=== PATIENT | female | born 1960 | race Two or more races ===

== ENCOUNTER → 2016-11-15 | Outpatient (CLI) | payer OTHER, SELFPAY ==
[~2016-11-15] MED LIST: ALEVE220 MG PO; BISOPROLOL-HCT1 EAC2 PO; FLINTSTONES WIT18 MG PO; LEVOTHROID (S100 MCG PO; NORCO 5-325 TA1 EACH PO; PERCOCET 5-3251 EACH PO; VALIUM5 MG PO
== END | disposition disaster alternative care site (69) ==
LOC: GRAD 17:04
DX: M25.561 Pain in right knee (principal); S80.11XA Contusion of right lower leg, initial encounter; S83.241A Other tear of medial meniscus, current injury, right knee, initial encounter; S83.281A Other tear of lateral meniscus, current injury, right knee, initial encounter; M25.461 Effusion, right knee; M71.21 Synovial cyst of popliteal space [Baker], right knee; X58.XXXA Exposure to other specified factors, initial encounter

== ENCOUNTER → 2016-12-02 | Outpatient (CLI) | payer OTHER, SELFPAY ==
--- NOTE | ~2016-12-02 | ENPV ---
Vascular Lower Extremities DVT Study Procedure Demographics Patient Name ROSA AMOS Date of Study 12/02/2016 Patient Number [id number] Gender Female Date of 1960 Age 56 Visit Number [id number] Height Accession Number [id number] Weight Room Number BSA BMI Referring Linden Campbell MD Physician Daniel Sanderson Physician MEGHANA Physician Ordering Physician Daniel Sanderson [employer] PA Internal Control Specialist Aroldo Etienne T, [facility] [place] Conclusions Summary No evidence of deep vein thrombosis or superficial thrombophlebitis in the right lower extremity . Hypoechoic structure, possibly a wilhelm's cyst, noted on the posterior aspect of the right knee. Procedure Type of Study: Veins:Lower Extremities DVT Study, Lower Extremity Right. Indications for Study:Swelling of Limb and Pain in Limb. Additional Indications:prior right knee scope Appropriate Use Criteria:9 Patient Status:Routine. Study Location:Vascular Lab. Technical Quality:Adequate visualization. - Preliminary reported to:Dr. Hernández's Nurse. Velocities are measured in cm/s ; Diameters are measured in cm Right Lower Extremities DVT Study Measurements Right 2D and Doppler Measurements + + + + +------+------+ + !Location !Visualized!Compressibility!Thrombosis!Signal!Reflux!Reflux ! ! ! ! ! ! ! !(sec) ! + + + + +------+------+ + !GSV Thigh !Yes !Yes !None !Phasic! ! ! + + + + +------+------+ + !Common !Yes !Yes !None !Phasic! ! ! !Femoral ! ! ! ! ! ! ! + + + + +------+------+ + !Prox !Yes !Yes !None !Phasic! ! ! !Femoral ! ! ! ! ! ! ! + + + + +------+------+ + !Mid Femoral!Yes !Yes !None !Phasic! ! ! + + + + +------+------+ + !Dist !Yes !Yes !None !Phasic! ! ! !Femoral ! ! ! ! ! ! ! + + + + +------+------+ + !Popliteal !Yes !Yes !None !Phasic! ! ! + + + + +------+------+ + !Gastroc !Yes !Yes !None ! ! ! ! + + + + +------+------+ + !PTV !Yes !Yes !None ! ! ! ! + + + + +------+------+ + !Peroneal !Yes !Yes !None ! ! ! ! + + + + +------+------+ + Left Lower Extremities DVT Study Measurements Left 2D and Doppler Measurements + + + + +------+------+ + !Location !Visualized!Compressibility!Thrombosis!Signal!Reflux!Reflux ! ! ! ! ! ! ! !(sec) ! + + + + +------+------+ + !Common !Yes !Yes !None !Phasic! ! ! !Femoral ! ! ! ! ! ! ! + + + + +------+------+ + Signature dtt: CARLOS QUEVEDO dtmiri: 12/02/16 1335 Physician Self Edit
== END | disposition disaster alternative care site (69) ==
LOC: GCAR 13:15
DX: M79.661 Pain in right lower leg (principal); M79.89 Other specified soft tissue disorders